=== PATIENT | male | born 1960 | race Caucasian/White ===

== ENCOUNTER 2018-02-13 03:40 | Emergency (ER) | payer BC ==
--- NOTE | 2018-02-13 03:50 | EDM.PDOC ---
ED HPI GENERAL MEDICAL PROBLEM - General Chief Complaint: Chest Pain Stated Complaint: HEART Time Seen by Provider: 02/13/18 03:48 Source of Information: Reports: Patient History Limitations: Reports: Other (no old records) - History of Present Illness INITIAL COMMENTS - FREE TEXT/NARRATIVE: 57 yo male visiting from [place] presents via EMS with CP that woke him up about 0130h today. He himself took ASA 81 mg po x 5. EMS gave NTG SL with partial relief. He also received some Fentanyl and Zofran from EMS. Georgi has no prior hx of CAD, but does have AODM and HTN and hyperlipidemia. He is also a smoker. He reports radiation down the left arm tonight. Onset: Today Onset Date: 02/13/18 Onset Time: 01:30 Duration: Hour(s):, Constant Location: Reports: Chest Quality: Reports: Pressure Severity: Moderate Improves with: Reports: Medication Worsens with: Reports: None Context: Reports: Other (risk factors present for CAD) Associated Symptoms: Reports: Chest Pain, Nausea/Vomiting. 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 [Unable to Verify Home Med List] 02/13/18 [History] ED ROS GENERAL - Review of Systems Review Of Systems: See Below Constitutional: Reports: No Symptoms HEENT: Reports: No Symptoms Respiratory: Reports: No Symptoms Cardiovascular: Reports: Chest Pain Endocrine: Reports: No Symptoms GI/Abdominal: Reports: Nausea. Denies: Vomiting : Reports: No Symptoms Musculoskeletal: Reports: No Symptoms Skin: Reports: No Symptoms Neurological: Reports: No Symptoms ED EXAM, GENERAL - Physical Exam Exam: See Below Exam Limited By: No Limitations General Appearance: Alert, WD/WN, No Apparent Distress Eye Exam: Bilateral Eye: Normal Inspection Ears: Normal External Exam, Normal Canal, Hearing Grossly Normal, Normal TMs Ear Exam: Bilateral Ear: Auricle Normal, Canal Normal Nose: Normal Inspection, Normal Mucosa, No Blood Throat/Mouth: Normal Inspection, Normal Lips, Normal Oropharynx, Normal Voice, No Airway Compromise Head: Atraumatic, Normocephalic Neck: Normal Inspection, Supple Respiratory/Chest: No Respiratory Distress, Lungs Clear, No Accessory Muscle Use Cardiovascular: Regular Rate, Rhythm, No Edema GI/Abdominal: Normal Bowel Sounds, Soft, Non-Tender, No Distention Back Exam: Normal Inspection Extremities: Normal Inspection, Normal Range of Motion, Non-Tender, No Pedal Edema Neurological: Alert, Oriented, CN II-XII Intact, Normal Cognition, No Motor/ Sensory Deficits Psychiatric: Normal Affect, Normal Mood Skin Exam: Warm, Dry, Intact, Normal Color, No Rash Lymphatic: No Adenopathy EKG INTERPRETATION EKG Date: 02/13/18 Time: 03:35 Rhythm: NSR Rate (Beats/Min): 60 [place]: Normal P-Wave: Present QRS: Normal ST-T: Elevated (lead III) QT: Normal Comparison: NA - No Prior EKG Course - Vital Signs Text/Narrative:: Discussed with Dr. Cordova @043 @ [facility], accepts in transfer. Last Recorded V/S: Last Vital Signs Temp 36.2 C 02/13/18 03:49 Pulse 64 02/13/18 04:17 Resp 10 L 02/13/18 03:49 BP 125/65 02/13/18 04:17 Pulse Ox 99 02/13/18 03:49 - Orders/Labs/Meds Orders: Active Orders 24 hr Category Date Time Status Cardiac Monitoring [RC] .As Directed Care 02/13/18 03:47 Active EKG Documentation Completion [RC] ASDIRECTED Care 02/13/18 03:46 Active UA W/MICROSCOPIC [URIN] Stat Lab 02/13/18 03:47 Ordered Heparin Sodium/D5W [Heparin 25,000 Units in D5W 500 ML] Med 02/13/18 04:45 Ordered 25,000 units in 500 ml IV TITRATE EKG 12 Lead [EK] Routine Ther 02/13/18 03:46 Ordered Medication Orders Heparin Sodium/Dextrose (Heparin 25,000 Units In D5w 500 Ml) 25,000 units in 500 mls @ 18 mls/hr IV TITRATE GWEN Last Admin: 02/13/18 04:41 Dose: 900 units/hr, 18 mls/hr Labs: Laboratory Tests 02/13/18 02/13/18 Range/Units 03:47 03:47 WBC 12.4 H (4.5-11.0) K/uL RBC 4.29 L (4.30-5.90) M/uL Hgb 13.3 (12.0-15.0) g/dL Hct 40.5 (40.0-54.0) % MCV 94 (80-98) fL MCH 31 (27-31) pg MCHC 33 (32-36) % Plt Count 288 (150-400) K/uL Sodium 137 L (140-148) mmol/L Potassium 4.5 (3.6-5.2) mmol/L Chloride 102 (100-108) mmol/L Carbon Dioxide 26 (21-32) mmol/L Anion Gap 13.5 (5.0-14.0) mmol/L BUN 15 (7-18) mg/dL Creatinine 1.2 (0.8-1.3) mg/dL Est Cr Clr Drug Dosing 67.92 mL/min Estimated GFR (MDRD) > 60 (>60) Glucose 191 H (74-106) mg/dL Calcium 8.7 (8.5-10.1) mg/dL Troponin I 0.695 H* (0.000-0.056) ng/mL Meds: Medications Generic Name Dose Route Start Last Admin Trade Name Freq PRN Reason Stop Dose Admin Heparin Sodium/Dextrose 25,000 units in 500 mls @ 18 mls/hr 02/13/18 04:45 04:41 Heparin 25,000 Units In D5w 500 Ml IV 900 units/hr TITRATE GWEN 18 mls/hr Administration 900 UNITS/HR Discontinued Medications Generic Name Dose Route Start Last Admin Trade Name Freq PRN Reason Stop Dose Admin Clopidogrel Bisulfate 600 mg 02/13/18 03:55 02/13/18 04:07 Plavix PO 02/13/18 03:56 600 mg ONETIME ONE Administration Heparin Sodium (Porcine) 5,000 units 02/13/18 03:56 02/13/18 04:10 Heparin Sodium IVPUSH 02/13/18 03:57 5,000 units ONETIME ONE Administration Metoprolol Tartrate 25 mg 02/13/18 03:55 02/13/18 04:17 Lopressor PO 02/13/18 03:56 25 mg ONETIME ONE Administration Morphine Sulfate 2 mg 02/13/18 03:55 02/13/18 04:13 Morphine IVPUSH 02/13/18 03:56 2 mg ONETIME ONE Administration Departure - Departure Time of Disposition: 04:50 Disposition: DC/Tfer to Acute Hospital 02 Reason for Transfer *Q: Primary PCI Indicated Clinical Impression: Acute inferior myocardial infarction, Elevated blood sugar Referrals: PCP,None [Primary Care Provider] - Forms: ED Department Discharge - My Orders Last 24 Hours: My Active Orders 02/13/18 03:46 EKG Documentation Completion [RC] ASDIRECTED EKG 12 Lead [EK] Routine 02/13/18 03:47 Cardiac Monitoring [RC] .As Directed UA W/MICROSCOPIC [URIN] Stat 02/13/18 04:45 Heparin Sodium/D5W [Heparin 25,000 Units in D5W 500 ML] 25,000 units in 500 ml IV TITRATE - Assessment/Plan Last 24 Hours: My Active Orders 02/13/18 03:46 EKG Documentation Completion [RC] ASDIRECTED EKG 12 Lead [EK] Routine 02/13/18 03:47 Cardiac Monitoring [RC] .As Directed UA W/MICROSCOPIC [URIN] Stat 02/13/18 04:45 Heparin Sodium/D5W [Heparin 25,000 Units in D5W 500 ML] 25,000 units in 500 ml IV TITRATE
[2018-02-13] MEDS ORDERED: Metoprolol Tartrate 25 MG Tab PO ONE (03:55)
[2018-02-13] MEDS ORDERED: Morphine 2 MG/ML Syringe IVPUSH ONE (03:55)
[2018-02-13] MEDS ORDERED: Clopidogrel 75 MG Tab PO ONE (03:55)
[2018-02-13] MEDS ORDERED: Heparin Sodium 5,000 Units/ML Vial IVPUSH ONE (03:56)
[2018-02-13] MEDS ORDERED: Heparin Sodium/D5W 25,000 UNITS/500 ML BAG IV SCH (04:45)
== END 2018-02-13 05:28 ==
LOC: JP.ED 03:40
DX: I21.9 Acute myocardial infarction, unspecified (principal); R73.9 Hyperglycemia, unspecified
CPT/HCPCS: 36415; 80048; 84484; 85027; 93005; 96365; 96375; 99285; A9270; J1644; J2270